=== PATIENT | female | born 1965 | race Caucasian/White ===

== ENCOUNTER 2020-03-09 07:08 | Day surgery (SDC) | payer OTHER, SELFPAY ==
[~2020-03-09] VITALS: Ht 175.3 cm; Wt 93.0 kg
[~2020-03-09 07:08] MED LIST: CLINDAMYCIN PHOS 600 MG/ D5W 50 ML PREMIX IV ONE
[2020-03-09] MEDS ORDERED: MIDAZOLAM HCL 5 MG/5 ML VIAL IVP ONE (08:00)
[2020-03-09] MEDS ORDERED: MIDAZOLAM HCL 2 MG/2 ML VIAL (VERSED) IVP ONE (08:00)
[2020-03-09] MEDS ORDERED: MIDAZOLAM HCL 5 MG/5 ML VIAL ONE ×2 (08:21→09:11)
[2020-03-09] MEDS ORDERED: PROPOFOL 200MG/ 20ML VIAL (DIPRIVAN) IV ONE (09:21)
[2020-03-09] MEDS ORDERED: LR 1,000 ML IV.SOLN IV ONE (09:21)
[2020-03-09] MEDS ORDERED: DEXAMETHASONE SOD PHOSPHATE 4 MG/ML VIAL IVP ONE (09:21)
[2020-03-09] MEDS ORDERED: LIDOCAINE 1% 10 MG/ML, 20 ML MDV INJ ONE (09:21)
[2020-03-09] MEDS ORDERED: ISOSULFAN BLUE 5 ML VIAL (LYMPHAZURIN) INJ ONE (09:21)
[2020-03-09] MEDS ORDERED: NS IRRIG SOLN 1000 ML IR ONE (09:21)
[2020-03-09] MEDS ORDERED: BUPIVACAINE /PF 0.25% 30 ML VIAL INJ ONE (09:21)
[2020-03-09] MEDS ORDERED: fentaNYL CITRATE 250 MCG/5 ML AMP IV ONE (09:21)
[2020-03-09] MEDS ORDERED: ONDANSETRON HCL 4 MG/2 ML VIAL IVP ONE (09:21)
[2020-03-09] MEDS ORDERED: ONDANSETRON HCL 4 MG/2 ML VIAL IVP PRN (10:15)
[2020-03-09] MEDS ORDERED: HYDROmorphone 1 MG INJ. 1 MG/ML AMPUL IVP PRN (10:15)
[2020-03-09] MEDS ORDERED: LR 1,000 ML IV SCH (10:15)
[2020-03-09] MEDS ORDERED: METOCLOPRAMIDE HCL 10 MG/2 ML VIAL IVP PRN (10:15)
[2020-03-09] MEDS ORDERED: MIDAZOLAM HCL 2 MG/2 ML VIAL (VERSED) IVP PRN (10:15)
[2020-03-09] MEDS ORDERED: MEPERIDINE HCL/PF 25 MG/ML DISP.SYRIN IVP PRN (10:15)
[2020-03-09] MEDS ORDERED: D5/0.45 NS 1,000 ML IV SCH (10:58)
[2020-03-09] MEDS ORDERED: HYDROcodone/ACETAMIN 5-325 MG TAB (NORCO/ VICODIN) PO PRN ×2 (11:00)
[2020-03-09 11:50] VITALS: BP_SYST 105
== END 2020-03-09 12:30 | disposition home or self-care (01) ==
LOC: SDS 07:08 → SMU 07:12 → EDSTATUS 08:45 → SDS 12:30
PROVIDERS: ATTEND Colon & Rectal Surgery
DX: C50.412 Malignant neoplasm of upper-outer quadrant of left female breast (principal); L30.9 Dermatitis, unspecified; M25.552 Pain in left hip; Z88.0 Allergy status to penicillin; Z79.899 Other long term (current) drug therapy; Z11.59 Encounter for screening for other viral diseases; R59.0 Localized enlarged lymph nodes
CPT/HCPCS: 19301; 38525; 78195; 88307; 88333; 88342; A9541; J1100; J2001; J2250; J2405; J2704; J3010; J3490 ×2; J7120; Q9968; U0003; J3465

== ENCOUNTER 2021-05-24 16:05 | Emergency (ER) | payer OTHER, SELFPAY ==
[~2021-05-24] VITALS: Ht 175.3 cm; Wt 93.0 kg
[2021-05-24 16:09] VITALS: BP_SYST 140
[2021-05-24] MEDS ORDERED: HYDROcodone/ACETAMIN 7.5-325 MG TAB PO ONE (17:00)
[2021-05-24 18:52] VITALS: BP_SYST 127
== END 2021-05-24 18:52 | disposition home or self-care (01) ==
LOC: SED 16:05
DX: S20.212A Contusion of left front wall of thorax, initial encounter (principal); W01.0XXA Fall on same level from slipping, tripping and stumbling without subsequent striking against object, initial encounter; Y93.89 Activity, other specified; Y92.89 Other specified places as the place of occurrence of the external cause; Y99.8 Other external cause status
CPT/HCPCS: 71045; 71100; 99284